=== PATIENT | female | born 1955 | race American Indian/Alaskan Native ===

== ENCOUNTER 2018-03-06 13:07 | Emergency (ER) | payer SELFPAY ==
[2018-03-06] MEDS ORDERED: CATAPRES PO ONE (16:34)
--- NOTE | 2018-03-06 16:41 | Emergency Department Report ---
Chief Complaint: High BP Stated Complaint: HBP Time Seen by Provider: 03/06/18 16:14 - HPI History of Present Illness: 63-year-old female presents to the emergency department with a complaint of elevated blood pressure. She's been dealing with a dentist for a few different appointments related to some left lower jaw pain and swelling. She was originally placed on some antibiotics and went to follow up today for a possible procedure but they checked her blood pressure and it was extremely elevated so she was sent in for further evaluation. She denies any chest pain, shortness of breath, headache, vision change, dizziness. She says that she has a history of hypertension and "every once in a while." She denies tobacco or illicit drug use or abuse. She does eat a lot of fast food. She drinks about 2 cups of coffee per day. She is not on any blood pressure medications. She has not taken anything for her symptoms prior to presentation. - ROS Review of Systems: Negative for chest pain, shortness of breath, headache, vision change - Exam Vital Signs: Vital Signs 03/06/18 03/06/18 03/06/18 15:08 16:08 16:38 Temperature 98.8 F 98.4 F Pulse Rate 82 84 84 Respiratory 20 18 Rate Blood Pressure 205/105 175/82 Blood Pressure 175/82 [Right] O2 Sat by Pulse 97 98 Oximetry Physical Exam: She is awake and alert and in no acute distress. Heart and lung sounds are normal to auscultation. MSE screening note: Focused history and physical exam performed. Due to findings the following was ordered: Patient has been given a dose of Catapres. We will recheck her blood pressure 30 minutes. If it is decreasing, she will be discharged home on a blood pressure medication. We discussed dietary and lifestyle changes to make, keeping a blood pressure log and will need a referral for primary care clinics. ED Disposition for MSE Condition: Stable Referrals: PRIMARY CARE, [Primary Care Provider] - 3-5 Days
--- NOTE | 2018-03-06 18:05 | Emergency Department Report ---
ED General Adult HPI - General Chief complaint: High BP Stated complaint: HBP Time Seen by Provider: 03/06/18 16:14 Source: patient Mode of arrival: Ambulatory Limitations: No Limitations - History of Present Illness Initial comments: This is a 63-year-old female nontoxic, well nourished in appearance, no acute signs of distress presents to the ED for elevated blood pressure. Patient stated she was seen in a dentist office for her appointment and was told that her blood pressure is elevated and to go to emergency room. Patient currently denies any headache, chest pain, shortness of breath, blurry vision, visual changes, dizziness, numbness, tingling, back pain or abdominal pain or pelvic pain. Patient states she is asymptomatic. Patient states she was on the pressure medication a while ago and is uncertain which medication it was. Patient states she has not been taking any medications. Patient denies tobacco or illegal drug use or abuse. Patient denies any drug allergies or significant past medical history. Severity scale (0 -10): 0 Improves with: none Worsens with: none Associated Symptoms: denies other symptoms. denies: confusion, chest pain, cough, diaphoresis, fever/chills, headaches, loss of appetite, malaise, nausea/ vomiting, rash, seizure, shortness of breath, syncope, weakness Treatments Prior to Arrival: none - Related Data Previous Rx's Medication Instructions Recorded Last Taken Type amLODIPine [Norvasc] 5 mg PO DAILY #30 tab 03/06/18 Unknown Rx Allergies Allergy/AdvReac Type Severity Reaction Status Date / Time No Known Allergies Allergy Unverified 03/06/18 15:07 ED Review of Systems ROS: Stated complaint: HBP Other details as noted in HPI Constitutional: denies: chills, fever Eyes: denies: eye pain, eye discharge, vision change ENT: denies: ear pain, throat pain Respiratory: denies: cough, shortness of breath, wheezing Cardiovascular: denies: chest pain, palpitations Endocrine: no symptoms reported Gastrointestinal: denies: abdominal pain, nausea, diarrhea Genitourinary: denies: urgency, dysuria, discharge Musculoskeletal: denies: back pain, joint swelling, arthralgia Skin: denies: rash, lesions Neurological: denies: headache, weakness, paresthesias Psychiatric: denies: anxiety, depression Hematological/Lymphatic: denies: easy bleeding, easy bruising ED Past Medical Hx - Past Medical History Previous Medical History?: No - Surgical History Past Surgical History?: No - Social History Smoking Status: Never Smoker Substance Use Type: None - Medications Home Medications: Home Medications Medication Instructions Recorded Confirmed Last Taken Type amLODIPine [Norvasc] 5 mg PO DAILY #30 tab 03/06/18 Unknown Rx ED Physical Exam - General Limitations: No Limitations General appearance: alert, in no apparent distress - Head Head exam: Present: atraumatic, normocephalic - Eye Eye exam: Present: normal appearance - ENT ENT exam: Present: normal exam, mucous membranes moist - Neck Neck exam: Present: normal inspection, full ROM - Respiratory Respiratory exam: Present: normal lung sounds bilaterally. Absent: respiratory distress, wheezes, rales, rhonchi, stridor, chest wall tenderness, accessory muscle use, decreased breath sounds - Cardiovascular Cardiovascular Exam: Present: regular rate, normal rhythm, normal heart sounds. Absent: bradycardia, tachycardia, irregular rhythm, systolic murmur, diastolic murmur, rubs, gallop - GI/Abdominal GI/Abdominal exam: Present: soft, normal bowel sounds - Extremities Exam Extremities exam: Present: normal inspection - Back Exam Back exam: Present: normal inspection - Neurological Exam Neurological exam: Present: alert, oriented X3 - Psychiatric Psychiatric exam: Present: normal affect, normal mood - Skin Skin exam: Present: warm, dry, intact, normal color. Absent: rash ED Course Vital Signs 03/06/18 03/06/18 03/06/18 15:08 16:08 16:38 Temperature 98.8 F 98.4 F Pulse Rate 82 84 84 Respiratory 20 18 Rate Blood Pressure 205/105 175/82 Blood Pressure 175/82 [Right] O2 Sat by Pulse 97 98 Oximetry 03/06/18 17:51 Temperature Pulse Rate 80 Respiratory Rate Blood Pressure Blood Pressure 166/92 [Right] O2 Sat by Pulse Oximetry - Reevaluation(s) Reevaluation #1: 03/06/18 18:06 Patient is speaking in full sentences with no signs of distress noted. ED Medical Decision Making - Medical Decision Making this is a 63-year-old female that presents with hypertension. Patient was examined by me and Dr. Whitmore. Patient received Catapres in the ED which blood pressure has decreased prior to discharge. I will start patient on Norvasc. She was educated on high blood pressure diet. She was also instructed to keep a daily diary of blood pressure into presents a primary care doctor. Patient was referred to Follow-up with a primary care doctor in 3-5 days or if symptoms worsen and continue return to emergency room as soon as possible. At time of discharge, the patient does not seem toxic or ill in appearance. No acute signs of distress noted. Patient agrees to discharge treatment plan of care. No further questions noted by the patient. Critical care attestation.: If time is entered above; I have spent that time in minutes in the direct care of this critically ill patient, excluding procedure time. ED Disposition Clinical Impression: Hypertension Qualifiers: Hypertension type: unspecified Qualified Code(s): I10 - Essential (primary) hypertension Disposition: TO HOME OR SELFCARE Is pt being admited?: No Does the pt Need Aspirin: No Condition: Stable Instructions: Hypertension (ED), Amlodipine (By mouth) Additional Instructions: Follow-up with a primary care doctor in 3-5 days or if symptoms worsen and continue return to emergency room as soon as possible. Keep a daily diary of blood pressure and presented to primary care doctor. Prescriptions: amLODIPine [Norvasc] 5 mg PO DAILY #30 tab Referrals: PRIMARY CARE, [Primary Care Provider] - 3-5 Days RICARDO POPE MD [Staff Physician] - 3-5 Days JACQUES BEAR MD [Staff Physician] - 3-5 Days [facility] [Outside] - 3-5 Days [facility] [Outside] - 3-5 Days Forms: Work/School Release Form(ED)
[2018-03-06 18:36] VITALS: BP 154/84
== END 2018-03-06 18:37 | disposition home or self-care (01) ==
LOC: ED 13:07
DX: I10 Essential (primary) hypertension (principal)
CPT/HCPCS: 99282